=== PATIENT | female | born 1960 | race Caucasian/White ===

== ENCOUNTER → 2022-10-09 | Outpatient (CLI) | payer OTHER | LOC: M PLAIMG 10:57 | PROVIDERS: ATTEND Internal Medicine Critical Care Medicine | DX: R91.8 Other nonspecific abnormal finding of lung field (principal) ==

== ENCOUNTER → 2023-01-21 | Outpatient (CLI) | payer OTHER ==
[~2023-01-21] MED LIST: AMLO1TAB24 PO; ATOR80TA59 PO; CLOP75TA2 PO; FLUT15.820 NARES; HYDR-3490 PO; IPRA0.00 INH; LORA-674 PO; LOSA100T46 PO; SYMB80INH INH; VENTAER INH
[2023-01-21 11:25] LABS: INR 0.96
== END ==
LOC: M LAB 10:29
PROVIDERS: ATTEND Internal Medicine Critical Care Medicine
DX: R91.8 Other nonspecific abnormal finding of lung field (principal)

== ENCOUNTER 2023-01-23 08:14 | Day surgery (SDC) | payer OTHER ==
[~2023-01-23] VITALS: Ht 152.4 cm; Wt 68.1 kg
[2023-01-23] MEDS ORDERED: LR 1,000 ML IV SCH ×2 (09:15→11:00)
[2023-01-23] MEDS ORDERED: LIDOCAINE PRES-FREE 2% 10ML AMP NEB ONE (09:20)
[2023-01-23] MEDS ORDERED: ALBUTEROL SULFATE 2.5MG/0.5ML INH NEB SOLN NEB ONE (09:20)
[2023-01-23] MEDS ORDERED: ONDANSETRON 4MG 2ML VIAL As Ordered ONE (09:45)
[2023-01-23] MEDS ORDERED: ROCURONIUM BROMIDE 50MG/5ML VIAL As Ordered ONE (09:45)
[2023-01-23] MEDS ORDERED: propofoL 200 MG/20 ML VIAL As Ordered ONE (09:45)
[2023-01-23] MEDS ORDERED: LIDOCAINE 2% 100MG/5ML SDV (FOR ANES.) As Ordered ONE (09:45)
[2023-01-23] MEDS ORDERED: SUGAMMADEX SODIUM 500 MG/5 ML VIAL (BRIDION) As Ordered ONE (09:45)
[2023-01-23] MEDS ORDERED: fentaNYL 100 MCG/2 ML INJECTION As Ordered ONE (10:04)
[2023-01-23] MEDS ORDERED: THROMBIN 5,000 UNITS VIAL As Ordered ONE (10:04)
[2023-01-23] MEDS ORDERED: LIDOCAINE 1% MDV 20ML VIAL As Ordered ONE (10:04)
[2023-01-23] MEDS ORDERED: EPINEPHrine 1MG/10ML SYRINGE 1.5IN As Ordered ONE (10:04)
[2023-01-23] MEDS ORDERED: CETACAINE SPRAY 5GM As Ordered ONE (10:04)
[2023-01-23] MEDS ORDERED: MIDAZOLAM INJ 2MG/2ML VIAL As Ordered ONE (10:04)
[2023-01-23] MEDS ORDERED: ACETAMINOPHEN 1000MG 100ML IV BAG As Ordered ONE (10:36)
[2023-01-23] MEDS ORDERED: HYDROMORPHONE HCL 0.5 MG/ 0.5 ML SYRINGE IV PRN (11:00)
[2023-01-23] MEDS ORDERED: fentaNYL 100 MCG/2 ML INJECTION IV PRN (11:00)
[2023-01-23] MEDS ORDERED: ONDANSETRON 4MG 2ML VIAL IV PRN (11:00)
[2023-01-23] MEDS ORDERED: oxyCODONE 5MG TAB PO PRN (11:00)
[2023-01-23] MEDS ORDERED: IPRATROPIUM 0.5MG/ALBUTEROL 2.5MG INH SOL UD 3ML (DUONEB) NEB STA (11:16)
[2023-01-23] MEDS ORDERED: IPRATROPIUM 0.5MG/ALBUTEROL 2.5MG INH SOL UD 3ML (DUONEB) As Ordered ONE (11:18)
[2023-01-23] MEDS ORDERED: IPRATROPIUM 0.5MG/ALBUTEROL 2.5MG INH SOL UD 3ML (DUONEB) NEB ONE (11:50)
[2023-01-23 14:06] VITALS: BP 118/56; TEMP 96.8; O2SAT 96
== END 2023-01-23 14:10 | disposition home or self-care (01) ==
LOC: M SDC 08:14
PROVIDERS: ATTEND Internal Medicine Critical Care Medicine
DX: J98.19 Other pulmonary collapse (principal); R06.02 Shortness of breath; J45.40 Moderate persistent asthma, uncomplicated; J44.9 Chronic obstructive pulmonary disease, unspecified; I25.10 Atherosclerotic heart disease of native coronary artery without angina pectoris; I10 Essential (primary) hypertension; I25.2 Old myocardial infarction; E78.00 Pure hypercholesterolemia, unspecified; F41.9 Anxiety disorder, unspecified; R91.8 Other nonspecific abnormal finding of lung field; Z88.2 Allergy status to sulfonamides; Z88.6 Allergy status to analgesic agent; Z79.899 Other long term (current) drug therapy; Z79.02 Long term (current) use of antithrombotics/antiplatelets; Z79.51 Long term (current) use of inhaled steroids; Z87.891 Personal history of nicotine dependence
CPT/HCPCS: 31623; 31624; 71045; 76000; 87070; 87102; 87116; 87205; 87206; 88104; 88108; 88313; J0131; J1100; J2250; J2405; J3010

== ENCOUNTER → 2023-09-30 | Outpatient (CLI) | payer OTHER ==
[~2023-09-30] MED LIST changes: +LORA-1041 PO; -LORA-674 PO
== END ==
LOC: M PLARAD 11:44
PROVIDERS: ATTEND Internal Medicine Critical Care Medicine
DX: R91.8 Other nonspecific abnormal finding of lung field (principal)
CPT/HCPCS: 78815; A9552